=== PATIENT | male | born 1995 | race Caucasian/White ===

== ENCOUNTER → 2020-05-19 | Outpatient (CLI) | payer BC | END | disposition home or self-care (01) | LOC: LABWHC1 10:54 | PROVIDERS: ATTEND Nurse Practitioner Family | DX: Z11.59 Encounter for screening for other viral diseases (principal) ==

== ENCOUNTER → 2020-08-27 | Outpatient (CLI) | payer BC | END | disposition home or self-care (01) | LOC: LABWHC1 13:41 | PROVIDERS: ATTEND Family Medicine | DX: Z20.828 Contact with and (suspected) exposure to other viral communicable diseases (principal) | CPT/HCPCS: U0003; C9803 ==

== ENCOUNTER → 2020-09-05 | Day surgery (SDC) | payer BC ==
[2020-09-03 14:09] VITALS: BMI 47.5
[~2020-09-05] MED LIST: ACETAMINOPHEN TAB 500 MG TAB PO ONE; BUPIVACAINE (PF) 0.5% 30 ML VIAL SQ ONE; DEXAMETHASONE SOD PHOSPHATE 10 MG/ML 1 ML VIAL IV ONE; GLYCOPYRROLATE 0.2 MG/ML 2 ML VIAL ONE; HEPARIN SODIUM,PORCINE 5,000 UNIT/ML 1 ML VIAL SQ ONE; HYDROmorphone 0.5 MG/0.5 ML SYRINGE IVP PRN; LACTATED RINGERS 1,000 ML IV SCH; LIDOCAINE 1% (10MG/ML) FOR IV START INTRADERMA PRN; LIDOCAINE 1% INJ 10MG/ML (20 ML MDV) ONE; MIDAZOLAM 2 MG/2 ML VIAL IV PRN; MIDAZOLAM 2 MG/2 ML VIAL ONE; NEOSTIGMINE 1 MG/ML 10 ML VIAL ONE; ONDANSETRON 4 MG/2 ML VIAL IVP ONE; PROPOFOL 10 MG/ML 20 ML VIAL IV ONE; ROCURONIUM 10 MG/ML (10 ML VIAL) IV ONE; SUCCINYLCHOLINE CHLORIDE 100 MG/5 ML SYR IV ONE; fentaNYL (PF) 50 MCG/ML 2 ML AMP ONE; metroNIDAZOLE-NS PMX 500 MG in SALINE 1 100ML.BAG IVPB ONE; oxyCODONE-APAP 5-325MG 1 EACH TAB PO STA
[2020-09-05 07:48] VITALS: TEMP 97
--- NOTE | 2020-09-05 07:48 | P.GSHP ---
History of Present Illness H&P Date: 09/05/20 Chief Complaint: Chronically infected pilonidal cyst This a 25-year-old male who presents today for excision of pilonidal cyst. Patient has had chronic infections and abscess of the prognosis. He presents today for excision. Patient is aware that we'll be packed after surgery. Past Medical History Past Medical History: Asthma Additional Past Medical History / Comment(s): PILONIDAL CYST History of Any Multi-Drug Resistant Organisms: None Reported Past Surgical History: No Surgical Hx Reported Additional Past Anesthesia/Blood Transfusion Reaction / Comment(s): NO ANESTHESIA HX Past Psychological History: No Psychological Hx Reported Smoking Status: Never smoker Past Alcohol Use History: None Reported Past Drug Use History: Marijuana Additional Drug Use History / Comment(s): SMOKES MARIJUANA - Past Family History Mother Family Medical History: No Reported History Medications and Allergies Home Medications Medication Instructions Recorded Confirmed Type Albuterol Inhaler [Ventolin Hfa 1 puff INHALATION RT-QID PRN 09/03/20 09/05/20 History Inhaler] Montelukast [Singulair] 10 mg PO DAILY 09/03/20 09/05/20 History Allergies Allergy/AdvReac Type Severity Reaction Status Date / Time No Known Allergies Allergy Verified 09/03/20 13:49 Surgical - Exam Vital Signs Temp Pulse Resp BP Pulse Ox 97.9 F 68 16 140/66 97 09/05/20 06:25 09/05/20 06:25 09/05/20 06:25 09/05/20 06:25 09/05/20 06:25 - General well developed, well nourished, no distress - Eyes PERRL - ENT normal pinna - Neck no masses - Respiratory normal expansion - Cardiovascular Rhythm: regular - Abdomen Abdomen: soft, non tender - Integumentary Chronic pilonidal cyst with abscess Assessment and Plan Assessment: Chronic phimosis. We'll perform excision. Patient aware that we'll be packed after surgery.
--- NOTE | 2020-09-05 07:50 | P.OP ---
Date of Procedure: 09/05/20 Preoperative Diagnosis: Pilonidal cyst with abscess Postoperative Diagnosis: Pilonidal cyst with abscess Procedure(s) Performed: Excision of pilonidal cyst Anesthesia: FELIX Surgeon: Tony Reis Estimated Blood Loss (ml): 10 Pathology: other ((Pilonidal cyst) Condition: stable Disposition: PACU Description of Procedure: The patient's placed on the operating table in the prone position after receiving general endotracheal tube anesthesia. Pilonidal cyst was prepped and draped in sterile fashion. Using a 15 blade the skin was incised and using left cautery the palpable cyst was dissected free and sent to pathology. Hemostasis was achieved. The wound was packed with Kerlix wet-to-dry. Patient top she will well and was sent to recovery room stable condition.
[2020-09-05 08:36] VITALS: RESP 16
[2020-09-05 08:55] VITALS: BP 126/78; PULSE 79
== END ==
LOC: OR 05:51
PROVIDERS: ATTEND Surgery
DX: L05.01 Pilonidal cyst with abscess (principal); J45.909 Unspecified asthma, uncomplicated; Z79.899 Other long term (current) drug therapy; Z91.09 Other allergy status, other than to drugs and biological substances
CPT/HCPCS: 88304; 11770; J2250; J1644; J1100; J2710; J0690; J2405; J2001; J3010; J0330; J2704